=== PATIENT | female | born 1980 | race Caucasian/White ===

== ENCOUNTER → 2016-10-02 | Outpatient (REF) ==
[~2016-10-02] MED LIST: AMOXICILLIN 8751 TAB PO; FOLIC ACID0.8 MG; GLUCOPHAGE500 MG/TAB PO; MOTRIN 600600 MG/TAB PO; PERCOCET 325 MG1 TA2; PERCOCET 325 MG1 TA2 PO; PRENATAL1 TA1; VIT B-6100 MG
== END ==
LOC: ZLAB.WCH 10:09
DX: Z01.89 Encounter for other specified special examinations (principal)

== ENCOUNTER → 2017-07-29 | Outpatient (REF) | LOC: ZLAB.WCH 18:01 | DX: Z01.89 Encounter for other specified special examinations (principal) ==

== ENCOUNTER → 2017-10-21 | Outpatient (REF) | LOC: ZLAB.WCH 18:04 | DX: Z01.89 Encounter for other specified special examinations (principal) ==

== ENCOUNTER → 2018-08-03 | Outpatient (REF) ==
[2018-08-03 17:48] LABS: THYROID STIMULATING HORMONE 1.23 uIU/mL (0.465-4.680)
== END ==
LOC: ZLAB.WCH 16:40
PROVIDERS: Physician Assistant
DX: Z01.89 Encounter for other specified special examinations (principal)